=== PATIENT | male | born 1940 | race Caucasian/White ===

== ENCOUNTER 2020-04-03 07:15 | Day surgery (SDC) | payer OTHER ==
--- NOTE | 2020-03-30 13:04 | RAD REPORT ---
EXAM DESCRIPTION: RAD - Chest Pa And Lat (2 Views) - 03/30/2020 12:56 pm CLINICAL HISTORY: preop, pending heart catheterization, history of hypertension COMPARISON: AP chest December 08, 2008 TECHNIQUE: Frontal and lateral views of the chest were obtained. FINDINGS: The lungs are clear of focal mass or infiltrate. No failure or volume overload. Interstiti al pattern is not substantially different comparison. Heart size is normal and central vasculature is within normal limits. No pleural effusion or pneumothorax seen. Thoracic spine degenerative león ge present with no acute findings seen. No aortic abnormality. IMPRESSION: No acute cardiopulmonary process. No worrisome change from comparison.
[2020-03-30 13:16] LABS: Absolute Lymphocytes (CBC) 2.1 K/uL (0.7-4.9); Basophils % 0.5 % (0-1.3); Lymphocytes % 23.8 % (15.3-44.8); MPV 8.1 fL (7.6-11.3)
[2020-03-30 13:28] LABS: Protime INR 1.52
[2020-03-30 13:29] LABS: Potassium 4.5 mmol/L (3.5-5.1)
[~2020-04-03 07:15] MED LIST: HEPA 1000U/500MLS 1,000 UNIT/500 ML BAG IV ONE; LIDOCAINE 1% 20 ML MDV ONE; NA CHLORIDE 0.9% 500 ML ONE
--- OUTSIDE RECORDS SUMMARY | 2020-04-03 07:17 | XMS REPORT | Clinical Summary ---
:1940 Author Organization [facility] Address [address] [place] [address] Care Team Providers Name Role Phone DO Rita Primary Care Provider Allergies Not on File Medications Not on file Active Problems Not on file Social History Tobacco Use Types Packs/Day Years Used Date Never Assessed Sex Assigned at Date Recorded Not on file Job Start Date Occupation Industry Not on file Not on file Not on file Travel History Travel Start Travel End No recent travel history available. Last Filed Vital Signs Not on file Plan of Treatment Health Maintenance Due Date Last Done Comments SHINGLES VACCINES (#1) 1991 65+ PNEUMOCOCCAL VACCINE (1 of 2 - PCV13) 2006 INFLUENZA VACCINE 05/19/2020 Results Not on fileafter 04/03/[address] van (Home) RIGO AVITIA 9119 1 Advance Directives For more information, please contact: [phone] Type Date Recorded Patient Seal Extrusion Operator Explanati on Advance Directives, Living Will and Medical Power of Level Vial Marker
--- OUTSIDE RECORDS SUMMARY | 2020-04-03 07:18 | XMS REPORT | Continuity of Care Document ---
:1940 Author Organization [facility] t Address [address] [place] [address] Care Team Providers Name Role Phone Rita KATE Primary Care Physician Payers Payer Name Policy Type Policy Number Effective Date Expiration Date S ource Problems Condition Condition Condition Status Onset Resolution Last Treating Co mments Source Name Details Category Date Date Treatment Clinician Date ATRIAL Condition Active 2014-12-21 Mem oria FIBRILLATI 12-21 13:01:21 l ON ATRIAL 00:00: [place] FIBRILLATI 00 ON Active 5 Condition 12/21/2014 Medical Group HYPERTENSI Condition Active 2014-12-21 Memoria VE 12-21 13:01:21 l CARDIOVASC 00:00: Cheikh aceves ULGINNY HYPERTENSI 00 DISEASE, VE BENIGN CARDIOVASC ULAR DISEASE, BENIGN Active 12/21/2014 Condition 5 Medical Group HYPERLIPID Condition Active 2014-12-21 Memoria EMIA 12-21 13:01:21 l 00:00: [place] HYPERLIPID 00 EMIA Active 12/21/2014 Condition 5 Medical Group DIABETIC Condition Active 2014-12-21 M emoria NEUROPATHY 12-21 13:01:21 l DIABETIC 00:00: Cheikh n NEUROPATHY 00 Active 12/21/2014 Condition 5 Medical Group POLYNEUROP Condition Active 2014-12-21 Memoria ATHY IN 12-21 13:01:21 l DIABETES 00:00: [place] POLYNEUROP 00 ATHY IN DIABETES Active 12/21/2014 Condition 5 [facility] Group OPIOID Condition Active 2014-12-21 Mem oria DEPENDENCE 12-21 13:01:21 l OPIOID 00:00: [place] DEPENDENCE 00 Active 12/21/2014 Condition 5 [facility] Group CHRONIC Condition Active 2014-12-21 Me moria PAIN 12-21 13:01:21 l SYNDROME CHRONIC 00:00: Luzmaria nn PAIN 00 SYNDROME Active 12/21/2014 Condition 5 [facility] LONG-TERM Condition Active 2014-12-21 Memoria USE, 12-21 13:01:21 l ANTICOAGUL 00:00: Cheikh aceves ANTS LONG-TERM 00 USE, ANTICOAGUL ANTS Active 12/21/2014 Condition 5 [facility] Group Allergies, Adverse Reactions, Alerts Allergy Allergy Status Severity Reaction(s) Onset Inactive Treating Comm ents Source Name Type Date Date Clinician PENICILL PENICILL Active Memori a IN IN 3-05 l 00:00: SULFA SULFA Active Memoria 305 l 00:00: [place] 00 CLINDAMY CLINDAMY Active Memori a JS HCL JS HCL 05 l 00:00: [place] 00 GABAPENT GABAPENT Active Memori a IN IN 3-05 l 00:00: [place] LYRICA LYRICA Active Memoria 305 l 00:00: [place] 00 LATEX LATEX Active Memoria 305 l 00:00: [place] 00 Penicill DA Active [facility] ins 9-15 Clear 00:00: Bynum 00 [facility] Sulfa DA Active [facility] (Sulfona 9-15 Clear mide 00:00: Bynum Antibiot 00 [facility] hydrochl DA Active [facility] orothiaz 9-15 Clear catherine 00:00: Bynum 00 [facility] clindamy DA Active PA [facility] js 9-15 Clear 00:00: Bynum 00 [facility] gabapent DA Active [facility] in 07-03 Clear 00:00: Bynum 00 [facility] latex DA Active SV [facility] 07-03 Clear 00:00: Bynum [facility] pregabal DA Active [facility] in 07-03 Clear 00:00: Bynum [facility] Social History Social Habit Start Date Stop Date Quantity Comments Source Sex Assigned At Lauri Wright Medications Ordered Filled Start Stop Current Ordering Indication Dosage Frequency Signature Comments Components Source Medication Medication Date Date Medication? Clinician (SIG) Name Name DULOXETINE Yes Memoria HCL 30 MG 3-05 l CPEP 00:00: CIALIS 5 MG Yes 1 tablet Me moria TABS 3-05 daily for l 00:00: BPH and ED LANSOPRAZOL Yes Memori a E 30 MG 3-05 l CPDR 00:00: JENTADUETO Yes Memoria 2.5-1000 MG 3-05 l TABS 00:00: ATORVASTATI Yes Memori a N CALCIUM 3-05 l 10 MG TABS 00:00: XARELTO 20 Yes Memoria MG TABS 3-05 l 00:00: AMLODIPINE Yes Memoria BESYLATE 10 3-05 l MG TABS 00:00: LOSARTAN 2014-0 Yes Memoria POTASSIUM 3-05 l 100 MG TABS 00:00: Cheikh n MELOXICAM Yes Memoria 7.5 MG TABS 3-05 l 00:00: FUROSEMIDE Yes Memoria 40 MG TABS 3-05 l 00:00: HYDROCODONE 0 Yes Memori a -ACETAMINOP 3-05 l HEN 10-325 00:00: Franck MG TABS 00 Vital Signs Vital Name Observation Time Observation Value Comments Source Height 2014-12-21 19:01:21 Fredi Juárez Weight 2014-12-21 19:01:21 [facility] Franck Systolic (mm Hg) 2014-12-21 19:01:21 William Juárez Diastolic (mm Hg) 2014-12-21 19:01:21 [facility] orial Franck Heart Rate 2014-12-21 19:01:21 [facility] Franck Temperature Oral (F) 2014-12-21 19:01:21 97.9 F [facility] Procedures Procedure Date / Time Performed Performing Clinician Sourc e colonoscopy 2012-10-19 19:01:21 [facility] Plan of Care Planned Activity Planned Date Details Comments Source Future Scheduled 2020-05-19 INFLUENZA VACCINE [place] [facility] 00:00:00 [code = INFLUENZA VACCINE] Future Scheduled 2006 65+ PNEUMOCOCCAL [place] [facility] 00:00:00 VACCINE (1 of 2 - PCV13) [code = 65+ PNEUMOCOCCAL VACCINE (1 of 2 - PCV13)] Future Scheduled 1991 SHINGLES VACCINES (#1) [place] [facility] 00:00:00 [code = SHINGLES VACCINES (#1)] Encounters Start End Encounter Admission Attending Care Care Encounter Source Date/Time Date/Time Type Type Clinicians Facility Department ID 2019-01-25 2019-01-25 Outpatient [facility] [id number] MH 05:42:00 05:42:00 Marissa stevens [facility] l Results This patient has no known results.
--- OUTSIDE RECORDS SUMMARY | 2020-04-03 07:18 | XMS REPORT | Continuity of Care Document ---
:1940 Author Organization [employer] [facility] Care Team Providers Name Role Phone [employer] [facility] Unavailable Un available Problems Problem Status Onset Classification Date Comments Sourc e Date Reported ATRIAL Active 12/22/19 Condition 12/21/2014 Medica l FIBRILLATION 15 Group HYPERTENSIVE Active 12/22/19 Condition 12/21/2014 Med ical CARDIOVASCULAR 15 Group DISEASE, BENIGN HYPERLIPIDEMIA Active 12/22/19 Condition 12/21/2014 [facility] edical 15 Group DIABETIC Active 12/22/19 Condition 12/21/2014 Medica l NEUROPATHY 15 Group POLYNEUROPATHY IN Active 12/22/19 Condition 12/21/2014 [facility] Medical DIABETES 15 Group OPIOID DEPENDENCE Active 12/22/19 Condition 12/21/2014 [facility] Medical 15 Group CHRONIC PAIN Active 12/22/19 Condition 12/21/2014 Med ical SYNDROME 15 Group LONG-TERM USE, Active 12/22/19 Condition 12/21/2014 [facility] edical ANTICOAGULANTS 15 Group Medications Medication Details Route Status Patient Ordering Order Source Instructions Provider Date DULOXETINE HCL Active 12/22/19 MH 30 MG CPEP 15 Medical Group CIALIS 5 MG 1 tablet Active 12/22/19 TABS daily for 15 Medical BPH and ED Group LANSOPRAZOLE 30 Active 12/22/19 MH MG CPDR 15 Medical Group JENTADUETO Active 12/22/19 MH 2.5-1000 MG 15 Medical TABS Group ATORVASTATIN Active 12/22/19 MH CALCIUM 10 MG 15 Medical TABS Group XARELTO 20 MG Active 12/22/19 MH TABS 15 Medical Group AMLODIPINE Active 12/22/19 MH BESYLATE 10 MG 15 Medical TABS Group LOSARTAN Active 12/22/19 MH POTASSIUM 100 15 Medical MG TABS Group MELOXICAM 7.5 Active 12/22/19 MH MG TABS 15 Medical Group FUROSEMIDE 40 Active 12/22/19 MH MG TABS 15 Medical Group HYDROCODONE-WALDO Active 12/22/19 TAMINOPHEN 15 Medical 10-325 MG TABS Group Allergies, Adverse Reactions, Alerts Substance Category Reaction Severity Reaction Status Date Comments S ource type Reported PENICILLIN Drug PENICILLIN allergy 5 Medical Group SULFA Drug SULFA allergy 5 Medical Group CLINDAMYCIN Drug CLINDAMYCIN HCL allergy HCL 5 Medical Group GABAPENTIN Drug GABAPENTIN allergy 5 Medical Group LYRICA Drug LYRICA allergy 5 Medical Group LATEX Environment LATEX al allergy 5 Medic al Group Immunizations Immunization Date Given Site Status Last Updated Comments Yarelis rce dT (Diphtheria 10/19/2009 completed [facility] edical and Tetanus) Group booster given pneumococcal 10/19/2009 completed Med ical immunization Group administered Results No Data Provided for This Section Pathology Reports No Data Provided for This Section Diagnostic Reports No Data Provided for This Section Consultation Notes No Data Provided for This Section Discharge Summaries No Data Provided for This Section History and Physicals No Data Provided for This Section Vital Signs Vital Sign Value Date Comments Source Height 70 12/21/2014 [facility] Gr[facility] p Weight 232 12/21/2014 [facility] Gr[facility] p Systolic (mm Hg) 147 12/21/2014 Medical Group Diastolic (mm Hg) 70 12/21/2014 Medical Group Heart Rate 61 12/21/2014 Medical Grou p Temperature Oral (F) 97.9 F 12/21/2014 Medi jose Group Encounters Location Location Encounter Encounter Reason Attending ADM [place] Stat Source Details Type Number For Provider Date Date Visit [facility] Office [id number] Richard 12/21 12/21 [facility] Visit 0 MD [facility] [place] Procedures Procedure Code Date Perfomer Comments Source colonoscopy 77509 10/19/2012 completed Medical Group Assessment and Plan No Data Provided for This Section Plan of Care No Data Provided for This Section Social History No Data Provided for This Section Family History No Data Provided for This Section Advance Directives No Data Provided for This Section Functional Status No Data Provided for This Section
[2020-04-03] MEDS ORDERED: MIDAZOLAM HCL 2 MG/2 ML INJ ONE ×2 (07:28→07:45)
[2020-04-03] MEDS ORDERED: FENTANYL CITR 100 MCG/2 ML ONE (07:28)
[2020-04-03] MEDS ORDERED: ATROPINE SULF 1 MG/10 ML SYR IV ONE (07:28)
[2020-04-03] MEDS ORDERED: NA CHLORIDE 0.9% 0 ML ONE (07:28)
[2020-04-03 08:35] VITALS: TEMP 97.4; O2SAT 98
[2020-04-03 09:42] VITALS: BP 137/58
--- NOTE | 2020-04-03 19:53 | OP ---
Date of Procedure: 04/03/2020 Surgeon: Gregorio Gonzalez MD Beater Out Leveling Machine: Trey Vaughn. The patient was admitted as an outpatient on 04/03/2020, to the cathode ray tube assembler. He was prepped and draped in the routine sterile fashion. Indication For The Procedure: Positive stress test, atypical chest pain, history of coronary artery disease and stents. Procedure Performed: Left heart catheterization with selective coronary arteriogram. Procedure In Detail: Mr. Ulrich is 80 years old. He was prepped and draped in the routine sterile fashion. He had a 6-[place] sheath introduced in the right common femoral artery. He received Versed for sedation. Angiography in the right common femoral artery was normal. Angio-Seal was used to cl ose the case. Selective catheterization of the left main and the right main was done using left and right Day catheter respectively. The RCA was small. He had a 70% stenosis and it was nondominan t. He had a 30% ostial LAD, he had a 70% mid ramus. He had a patent circumflex stent proximally. Complications: There were no complications. Blood Loss: 5 mL. Postoperative Diagnosis: [id number] coronary artery disease. Plan: Plan for now is for medical therapy. If he continues to have symptoms, we will consider doing PCI of his ramus. Somehow, I doubt that this is what is causing his symptoms. angiograp hy today. Anesthesia: Total conscious sedation was 30 minutes. I may have to adjust Mr. Ulrich's medication. I will also consider an echocardiogram to rule out ot her reasons for his symptoms. The patient will be going home today after 2 hours of bedrest. He archana l see me in the office in 1 week. AMANUEL/JOSE D Voice ID: [id number] Report ID: [id number]
== END 2020-04-03 10:10 | disposition home or self-care (01) ==
LOC: CCL 07:15
DX: I25.110 Atherosclerotic heart disease of native coronary artery with unstable angina pectoris (principal); I48.91 Unspecified atrial fibrillation; I10 Essential (primary) hypertension; E11.9 Type 2 diabetes mellitus without complications; Z95.5 Presence of coronary angioplasty implant and graft
CPT/HCPCS: 93005; 85025; 80048; 36415; 85610; 82947 ×3; 85730; 71046; 93454; C1893; C1760; J2250; J3010; J7040; J0583

== ENCOUNTER 2023-03-30 10:30 | Day surgery (SDC) | payer OTHER ==
[2023-03-27 14:13] LABS: Absolute Lymphocytes (CBC) 1.9 K/uL (0.7-4.9); Hematocrit 45.3 % (39.6-49.0); Lymphocytes % 23.7 % (15.3-44.8); MCV 91.3 fL (80-100); MPV 7.8 fL (7.6-11.3); RBC Red Blood Cell Count 4.96 M/uL (4.33-5.43)
[2023-03-27 14:22] LABS: Protime INR 1.23
[2023-03-27 14:27] LABS: Potassium 4.6 mEq/L (3.5-5.1)
--- NOTE | 2023-03-27 15:10 | RAD REPORT ---
EXAM DESCRIPTION: Brina Mendes And Lat (2 Views)03/27/2023 2:56 pm CLINICAL HISTORY: Preop for cardiac catheterization. Hypertension COMPARISON: 2019 FINDINGS: The lungs appear clear of acute infiltrate. The heart is mildly enlarged. Scoliosis involves the spine IMPRESSION: No acute abnormalities displayed
[2023-03-30] MEDS ORDERED: LIDOCAINE 1% 20 ML MDV ONE (10:38)
[2023-03-30] MEDS ORDERED: HEPA 1000U/500MLS 2,000 UNIT/1,000 ML BAG IV ONE (10:38)
[2023-03-30] MEDS ORDERED: VERAPAMIL HCL 10 MG/4 ML VIAL IV ONE (10:39)
[2023-03-30] MEDS ORDERED: FENTANYL CITR 100 MCG/2 ML ONE (10:39)
[2023-03-30] MEDS ORDERED: MIDAZOLAM HCL 2 MG/2 ML INJ ONE (10:39)
[2023-03-30] MEDS ORDERED: HEPARIN 5000 UNIT/ML 1 ML VIAL ONE (10:39)
[2023-03-30] MEDS ORDERED: HEPARIN 10,000 UNIT/10 ML VIAL IV ONE ×2 (10:40→13:06)
[2023-03-30] MEDS ORDERED: ATROPINE SULF 1 MG/10 ML SYR IV ONE (10:40)
[2023-03-30] MEDS ORDERED: NA CHLORIDE 0.9% 500 ML ONE (10:45)
--- NOTE | 2023-03-30 12:11 | EKG ---
Test Date: 2023-03-27 Test Time: 13:37:47 Paper Bag Maker: SAHIL MEASUREMENT RESULTS: Intervals: Rate: 43 MO: QRSD: 148 QT: 502 QTc: 424 [place]: P: MO: QRS: -39 T: 15 INTERPRETIVE STATEMENTS: Undetermined rhythm Left axis deviation Right bundle branch block Abnormal ECG Compared to ECG 03/27/2023 13:37:13 No significant changes Electronically Signed On 03-30-23 12:01:35 CDT by Gregorio Gonzalez
--- NOTE | 2023-03-30 12:11 | EKG ---
Test Date: 2023-03-27 Test Time: 13:37:13 Transportation Equipment Painter: SAHIL MEASUREMENT RESULTS: Intervals: Rate: 44 [place]: QRSD: 140 QT: 496 QTc: 424 [place]: P: [place]: QRS: -38 T: 16 INTERPRETIVE STATEMENTS: Undetermined rhythm Left axis deviation Right bundle branch block Abnormal ECG Compared to ECG 03/30/2020 12:27:31 Left-axis deviation now present Idioventricular rhythm no longer present Electronically Signed On 03-30-23 12:01:36 CDT by Gregorio Gonzalez
[2023-03-30] MEDS ORDERED: CLOPIDOGREL 75 MG TABLET ONE (12:59)
[2023-03-30] MEDS ORDERED: ASPIRIN 325 MG TAB ONE (12:59)
[2023-03-30] MEDS ORDERED: HYDRALAZINE HCL 20 MG/ML VIAL ONE (12:59)
[2023-03-30] MEDS ORDERED: ONDANSETRON 4 MG/2 ML VIAL ONE (13:24)
[2023-03-30 17:07] VITALS: BP 164/57; O2SAT 97
--- NOTE | 2023-03-30 21:23 | OP ---
Date of Procedure: 03/30/2023 Surgeon: FELIX YO Procedures Performed: 1.Selective coronary angiogram. 2.PCI of critical proximal ramus intermedius stenosis 99%, which is a culprit for the WI. I used a 3.0 x 60 mm Synergy drug-eluting stent. Indication: Non-ST elevation myocardial infarction. Access: 1.Right femoral artery 6-Japanese closed with 6-Japanese Angio-Seal. 2.Right radial artery 6-Japanese closed with TR band. Complications: None. Bleeding: Less than 20 mL. Anesthesia: Total sedation time was 45 minutes. Description Of Procedure: After risks, benefits, alternatives explained, the patient agreed to proce dure and signed informed consent. The patient was brought into the cardiac catheterization laborator y, prepped and draped in the usual sterile fashion. Then, I accessed right radial artery using a ped iatric micropuncture kit and placed 6-Japanese Slender sheath. I could not get the wire up due to tort uosity, so then I aborted the radial access and then I used the micropuncture kit, fluoroscopy, and u ltrasound guidance to access right femoral artery and placed 6-Japanese [place] sheath, and took 6-Bishnu [facility] JL4 catheter over a J-wire into the aortic root, engaged the left main, took standard views and t hen I used a 6-Japanese JR4 catheter to engage the RCA and then took standard views. Then, we gave sys temic heparin to assure ACT level above 250 throughout the procedure. We gave 600 mg of Plavix and 3 25 mg of aspirin and took a 6-Japanese 3.5 XB left guide into the aortic root over a J-wire, engaged le ft main, took a Run-Through wire into the left main, then to the ramus and then lesion was predilated using 3.0 balloon and then I placed the 3.0 x 60 mm Synergy drug-eluting stent with excellent result s. I then removed the wire and the guide and the sheath and a 6-Japanese Angio-Seal was used for closu re with good hemostasis. Findings: 1.Left main is normal. 2.The LAD; proximal 40%, but it is rather small vessel. 3.Ramus intermedius; very large with proximal 99% stenosis, status post successful PCI as above. 4.Left circumflex is very large and dominant with proximal 60% and distal multiple focal areas rangi ng between 40% to 60% and that supplies the inferior wall. 5.RCA; very small, nondominant with proximal 70% stenosis. Conclusion: 1.Critical ramus intermedius stenosis, status post successful PCI. 2.Moderate coronary artery disease otherwise. Recommendations: 1.Aspirin, Plavix, and statin. 2.Stress test as an outpatient to evaluate the need to work on the LAD. SR/MODL Voice ID: [id number] Report ID: [id number]
== END 2023-03-30 16:25 | disposition home or self-care (01) ==
LOC: PRE 10:30
PROVIDERS: ATTEND Internal Medicine
DX: I21.4 Non-ST elevation (NSTEMI) myocardial infarction (principal); I25.110 Atherosclerotic heart disease of native coronary artery with unstable angina pectoris; I10 Essential (primary) hypertension; I48.21 Permanent atrial fibrillation; I35.2 Nonrheumatic aortic (valve) stenosis with insufficiency; E11.9 Type 2 diabetes mellitus without complications; E78.2 Mixed hyperlipidemia; I65.21 Occlusion and stenosis of right carotid artery; G91.9 Hydrocephalus, unspecified; K21.9 Gastro-esophageal reflux disease without esophagitis; N40.0 Benign prostatic hyperplasia without lower urinary tract symptoms; Z79.01 Long term (current) use of anticoagulants; Z79.899 Other long term (current) drug therapy; Z88.0 Allergy status to penicillin; Z88.2 Allergy status to sulfonamides; Z88.6 Allergy status to analgesic agent; Z88.8 Allergy status to other drugs, medicaments and biological substances; Z91.040 Latex allergy status; Z82.49 Family history of ischemic heart disease and other diseases of the circulatory system
CPT/HCPCS: 93005 ×2; 85025; 80048; 36415; 85610; 82947; 85347 ×2; 85730; 71046; 93454; 76937; C1893; C1760; Q9967; G0269; C1725; C9600; J1644; J0360; J2001; J2250; J3010; J2405; J7040; J0461